=== PATIENT | female | born 1960 | race Caucasian/White ===

== ENCOUNTER 2018-10-01 17:54 | Inpatient (IN) | payer OTHER ==
[~2018-10-01] VITALS: Ht 162.6 cm; Wt 90.3 kg
[2018-10-01 17:59] VITALS: BP 188/92
[2018-10-01 18:22] LABS: ABSOLUTE BASOPHILS 0.1 thou/uL (0.0-0.2); ABSOLUTE EOSINOPHILS 0.1 thou/uL (0.0-0.7); ABSOLUTE LYMPHOCYTES 2.2 thou/uL (0.8-5.3); ABSOLUTE MONOCYTES 0.4 thou/uL (0.0-1.2); BASOPHILS 0.8 %; EOSINOPHILS 1.3 %; HEMATOCRIT 42.6 % (37.0-47.0); HEMOGLOBIN 14.4 gm/dL (12.0-15.0); LYMPHOCYTES 32.1 %; MCH 28.1 pg (26.0-34.0); MCHC 33.7 g/dL (28.0-37.0); MCV 83.3 fL (80.0-100.0); MONOCYTES 6.5 %; NUCLEATED RBCS 0 /100WBC; PLATELET COUNT* 154 thou/uL (150-400); POLYS 59.3 %; RBC 5.12 mil/uL (4.20-5.00); RDW-CV 14.2 % (10.5-14.5); WBC 6.8 thou/uL (4.0-11.0)
[2018-10-01 18:29] LABS: POTASSIUM 3.4 mmol/L (3.5-5.1)
[2018-10-01 18:39] LABS: ALBUMIN 3.7 g/dL (3.4-5.0); MAGNESIUM 1.8 mg/dL (1.8-2.4); TOTAL BILIRUBIN 0.2 mg/dL (<0.1-1.0); TOTAL PROTEIN 7.1 g/dL (6.4-8.2)
[2018-10-01 21:06] VITALS: BP 140/72
[2018-10-01 21:30] VITALS: BP 162/84
[2018-10-02] VITALS: BP 130/61
[2018-10-02 04:00] VITALS: BP 124/60
[2018-10-02 08:00] VITALS: BP 129/66
[2018-10-02 09:01] LABS: CHOLESTEROL 183 mg/dL (<200); HDL CHOLESTEROL 53 mg/dL (>40); LDL CHOLESTEROL 116 mg/dL (<100); SERUM ASSESSMENT Clear; TC:HDL 3.5 Ratio (Not establshd); TRIGLYCERIDE 71 mg/dL (<150); VLDL 14 mg/dL (<40)
[2018-10-02 12:00] VITALS: BP 130/79
--- NOTE | 2018-10-02 12:22 | EKG ---
[place] [address] ELECTROCARDIOGRAM REPORT Name: LAYNE COHEN Room: [address] ADM IN .R.#: [id number] Admission: 10/01/18 Attend Phys: Artem Alejo MD Discharge: Date of : 58 Report #: [id number] THIS REPORT FOR: //name// [facility] ED Test Date: 2018-10-01 Test Time: 17:59:06 Pat Name: LAYNE COHEN Department: Room: [facility] Gender: F Drilling Supervisor: Carlos A ELMORE : 1960 Requested By: Jose Saini Order Number: [id number] MD: Nelson Loera Measurements Intervals [place] Rate: 86 P: 42 [place]: 141 QRS: 48 QRSD: 94 T: 49 QT: 357 QTc: 427 Interpretive Statements Sinus rhythm Abnormal R-wave progression, early transition No previous ECG available for comparison Electronically Signed On 10-02-2018 12:22:44 ENGRAVER by Nelson Loera [email or web address] <ELECTRONICALLY SIGNED> By: Nelson Loera MD, [facility] 10/02/18 1222 1759 1759 Nelson Loera MD, FAC /EPI
--- NOTE | 2018-10-02 12:28 | EKG ---
[place] [address] ELECTROCARDIOGRAM REPORT Name: BARBIBANDARLAYNE Room: [address] ADM IN M.R.#: [id number] Admission: 10/01/18 Attend Phys: Artem Alejo MD Discharge: Date of : 58 Report #: [id number] THIS REPORT FOR: //name// [facility] Test Date: 2018-10-02 Test Time: 02:13:49 Pat Name: LAYNE COHEN Department: Room: [address] Gender: F Metals Analyst: : 1960 Requested By: Ellis Gil Order Number: [id number] Reading MD: Nelson Loera Measurements Intervals [place] Rate: 65 P: 43 [place]: 162 QRS: 33 QRSD: 95 T: 50 QT: 408 QTc: 425 Interpretive Statements Sinus rhythm Electronically Signed On 10-02-2018 12:28:25 WAXER FLOOR by Nelson Loera [email or web address] <ELECTRONICALLY SIGNED> By: Nelson Loera MD, [facility] 10/02/18 1228 0213 0213 Nelson Loera MD, FACC /EPI
--- NOTE | 2018-10-02 12:31 | EKG ---
[place] [address] ELECTROCARDIOGRAM REPORT Name: KAVONJUANBANDARLAYNE J Room: [address] ADM IN M.R.#: [id number] Admission: 10/01/18 Attend Phys: Artem Alejo MD Discharge: Date of : 58 Report #: [id number] THIS REPORT FOR: //name// [facility] Test Date: 2018-10-02 Test Time: 08:20:28 Pat Name: LAYNE COHEN Department: Room: [address] Gender: F Orchard Sprayer: : 1960 Requested By: Ellis Gil Order Number: [id number] Reading MD: Nelson Loera Measurements Intervals [place] Rate: 67 P: 72 [place]: 156 QRS: 50 QRSD: 94 T: 60 QT: 412 QTc: 435 Interpretive Statements Sinus rhythm Electronically Signed On 10-02-2018 12:31:30 PHYSICAL THERAPY TECHNICIAN by Nelson Loera [email or web address] <ELECTRONICALLY SIGNED> By: Nelson Loera MD, [facility] 10/02/18 1231 0820 0820 Nelson Loera MD, FACC /EPI
[2018-10-02 12:43] VITALS: BP 130/79
--- NOTE | 2018-10-02 12:44 | 2DMMODE ---
[place] [address] 2 D/M-MODE ECHOCARDIOGRAM Name: BARBIBANDARLAYNE Room: [address] IN [facility]#: [id number] Admission: 10/01/18 Attend Phys: Artem Alejo, Discharge: Date of : 58 Date of Service: 10/02/18 1243 Report #: [id number] THIS REPORT FOR: //name// APPROVED REPORT Study performed: 10/02/2018 10:19:22 EXAM: Comprehensive 2D, Doppler, and color-flow Echocardiogram Patient Location: In-Patient Room #: 219 Status: routine BSA: 1.95 HR: 66 bpm BP: 129/66 mmHg Rhythm: NSR Other Information Study Quality: Excellent Indications Non STEMI Chest Pain 2D Dimensions IVSd: 9.20 (7-11mm) LVOT Diam: 21.13 (18-24mm) LVDd: 36.05 mm PWd: 8.36 (7-11mm) Ascending Ao: 30.09 (22-36mm) LVDs: 22.27 (25-40mm) Aortic Root: 35.46 mm Volumes Left Atrial Volume (Systole) LA ESV Index: 25.40 mL/m2 Aortic Valve AoV Peak Fabian.: 1.22 m/s AO Peak Gr.: 5.98 mmHg LVOT Max P.93 mmHg AO Mean Gr.: 3.41 mmHg LVOT Mean P.51 mmHg LVOT Max V: 1.22 m/s AO V2 VTI: 25.32 cm LVOT Mean V: 0.71 m/s VAIBHAV (VTI): 3.95 cm2 LVOT V1 VTI: 28.50 cm Mitral Valve E/A Ratio: 1.38 MV Decel. Time: 217.55 [place] [address] 2 D/M-MODE ECHOCARDIOGRAM Name: LAYNE COHEN Room: [address] IN ..#: [id number] Admission: 10/01/18 Attend Phys: Artem Alejo, Discharge: Date of : 58 Date of Service: 10/02/18 1243 Report #: [id number] MV E Max Fabian.: 0.62 m/s MV PHT: 63.09 ms MVA (PHT): 3.49 cm2 TDI E/Lateral E': 5.17 E/Medial E': 6.20 Medial E' Fabian.: 0.10 m/s Lateral E' Fabian.: 0.12 m/s Pulmonary Valve PV Peak Fabian.: 0.77 m/s PV Peak Gr.: 2.39 mmHg Tricuspid Valve RAP Estimate: 5.00 mmHg TR Peak Gr.: 23.74 mmHg RVSP: 28.00 mmHg PA Pressure: 28.00 mmHg Left Ventricle The left ventricle is normal size. There is normal LV segmental wall motion. There is normal left ventricular wall thickness. Left ventricular systolic function is normal. The left ventricular ejection fraction is within the normal range. LVEF is 60-65%. The left ventricular diastolic function is normal. Right Ventricle The right ventricle is normal size. The right ventricular systolic function is normal. Atria The left atrium size is normal. The right atrium size is normal. Aortic Valve The aortic valve is normal in structure. No aortic regurgitation is present. There is no aortic valvular stenosis. Mitral Valve The mitral valve is normal in structure. There is no mitral valve regurgitation noted. No evidence of mitral valve stenosis. Tricuspid Valve The tricuspid valve is normal in structure. Trace tricuspid regurgitation. No pulmonary hypertension. Pulmonic Valve Pulmonic valve is not well visualized[place] [address] 2 D/M-MODE ECHOCARDIOGRAM Name: LAYNE COHEN Room: [address] IN [facility]#: [id number] Admission: 10/01/18 Attend Phys: Artem Alejo, Discharge: Date of : 58 Date of Service: 10/02/18 1243 Report #: [id number] regurgitation. Great Vessels The aortic root is normal in size. IVC is normal in size and collapses >50% with inspiration. Pericardium There is no pericardial effusion. <Conclusion> Left ventricular systolic function is normal. The left ventricular ejection fraction is within the normal range. <ELECTRONICALLY SIGNED> By: Nelson Loera MD, FACC 10/02/18 1243 1243 1243 Nelson Loera MD, FACC /INF
--- NOTE | 2018-10-02 15:37 | CON ---
[address] [address] CONSULTATION Name: BARBIBANDARLAYNE J Room: [address] IN ..#: [id number] Admission: 10/01/18 Attend Phys: Artem Alejo MD Discharge: 10/02/18 Date of : 58 Report #: [id number] THIS REPORT FOR: //name// CC: Felix Alejo DATE OF SERVICE: 10/02/2018 CARDIOLOGY CONSULTATION HISTORY OF PRESENT ILLNESS: The patient is a 58-year-old white female who I was asked to see in the hospital today after she complained of chest pain. The patient has no previous history of heart disease. She stays fairly active. She was doing well until yesterday afternoon. She was driving her car when she felt a pain under her left armpit. She felt a pressure sensation. It would tend to come and go. She noted some tingling of her fingers. She denied any associated shortness of breath, diaphoresis or nausea. She denied any chest tightness. She has had no recent fever, cough or blood in her stool. The pain was not related to food. She denied any trauma to her chest or rash. She denies any exertional dyspnea, palpitations or syncope. PAST MEDICAL HISTORY: Significant for previous tubal ligation. She had an appendectomy as a child. No history of hypertension, diabetes or hyperlipidemia. MEDICATIONS: She is on no medications. ALLERGIES: She has no known drug allergies. FAMILY HISTORY: Her mother had carotid endarterectomy, brother had a heart attack. SOCIAL HISTORY: She is . She works for a [employer] company. She stays active, including mowing the yard. She and her live in [place], [place]. No smoking or alcohol abuse. REVIEW OF SYSTEMS: No history of stroke, asthma, peptic ulcer disease, liver disease, kidney disease, cancer, psychiatric illness or chronic skin condition. PHYSICAL EXAMINATION: GENERAL: Revealed a middle-aged female lying in bed. She appeared in no distress. VITAL SIGNS: She had a blood pressure of 140/70, pulse 70. She was afebrile. HEENT: She was anicteric. Conjunctivae pink. Mucous membranes moist. NECK: Neck veins nondistended. No carotid bruits. [place] [address] CONSULTATION Name: BARBIBANDARLAYNE Room: [address]#: [id number] Admission: 10/01/18 Attend Phys: Artem Alejo MD Discharge: 10/02/18 Date of : 58 Report #: [id number] CHEST: Clear to auscultation. CARDIAC EXAMINATION: Regular rate and rhythm. without rub, murmur or gallop. ABDOMEN: Soft, nontender. EXTREMITIES: Had no edema. Dorsalis pedis pulse 3+ bilaterally. SKIN: Warm, dry. NEUROLOGICAL EXAMINATION: Nonfocal. LYMPH EXAMINATION: No adenopathy. MUSCULOSKELETAL EXAMINATION: No joint effusion. DIAGNOSTIC DATA: Her ECG on admission yesterday showed a sinus rhythm, with no ST or T-wave change. Her lab work, sodium 144, potassium 3.4 and creatinine 1.0. Liver function studies were normal. Troponin initially was 0.12, but 2 subsequent sets, it is less than 0.06. Lipid profile is pending. White blood cell count 6.8, hemoglobin 14.4. She had a portable chest x-ray yesterday that showed normal heart size and clear lung cm. IMPRESSION AND RECOMMENDATIONS: 1. Chest pain. The patient has minimal risk factors for coronary artery disease. Her pain is atypical for angina. I would not recommend stress testing. I suspect her chest pain is noncardiac. 2. Initial mild elevation of troponin. I would recommend an echocardiogram. 3. Borderline hypertension. Recommend exercise, weight loss and sodium restriction. <ELECTRONICALLY SIGNED> By: Nelson Loera MD, FACC 10/02/18 1537 0850 [id number] Loera MD, FACC /nt
== END 2018-10-02 14:00 | disposition home or self-care (01) | DRG 282 ==
LOC: M.ERS 17:54 → M.TBA-ER 20:16 → M.2W 20:16
PROVIDERS: Emergency Medicine Emergency Medical Services; ADMIT Internal Medicine
DX: I21.4 Non-ST elevation (NSTEMI) myocardial infarction (principal); I10 Essential (primary) hypertension; E87.6 Hypokalemia; I15.8 Other secondary hypertension; F43.9 Reaction to severe stress, unspecified; Z86.14 Personal history of Methicillin resistant Staphylococcus aureus infection; Z90.49 Acquired absence of other specified parts of digestive tract; Z82.49 Family history of ischemic heart disease and other diseases of the circulatory system

== ENCOUNTER 2021-10-30 08:37 | Inpatient (IN) | payer OTHER ==
[~2021-10-30] VITALS: Ht 162.6 cm; Wt 87.1 kg
[2021-10-30 08:39] VITALS: BP 136/71
[2021-10-30] MEDS ORDERED: DEXAMETHASONE 44 M1 PO (09:13)
[2021-10-30] MEDS ORDERED: ZOFRAN ODT4 MG DISSOLVE (09:13)
[2021-10-30 09:17] LABS: BE -0.3 mmol/L (-2 to +3); PCO2 35.1 mmHg (35.0-45.0); PO2 69.1 mmHg (75.0-100.0)
[2021-10-30 09:25] LABS: ABSOLUTE LYMPHOCYTES 0.8 thou/uL (0.8-5.3); ABSOLUTE MONOCYTES 0.3 thou/uL (0.0-1.2); ABSOLUTE NEUTROPHILS 1.7 thou/uL (1.6-8.1); BASOPHILS 0.6 %; EOSINOPHILS 0.1 %; HEMATOCRIT 41.6 % (37.0-47.0); HEMOGLOBIN 14.2 gm/dL (12.0-15.0); LYMPHOCYTES 28.2 %; MCH 27.5 pg (26.0-34.0); MONOCYTES 10.2 %; MPV 6.7 fl. (7.2-11.1); NUCLEATED RBCS 0 /100WBC; PLATELET COUNT* 100 thou/uL (150-400); POLYS 60.9 %; RBC 5.14 mil/uL (4.20-5.00); WBC 2.8 thou/uL (4.0-11.0)
[2021-10-30 09:27] LABS: CREATININE 0.9 mg/dL (0.6-1.3); POTASSIUM 3.5 mmol/L (3.5-5.1)
[2021-10-30 09:37] LABS: ALBUMIN 3.1 g/dL (3.4-5.0); TOTAL BILIRUBIN 0.5 mg/dL (<0.1-1.0); TOTAL PROTEIN 6.6 g/dL (6.4-8.2)
--- NOTE | 2021-10-30 11:08 | EKG ---
[place] [address] ELECTROCARDIOGRAM REPORT Name: LAYNE COHEN Room: [place] [address] ADM IN M.R.#: [id number] Admission: 10/30/21 Attend Phys: Heriberto Suarez, Discharge: Date of : 58 Date of Service: 10/30/21 0940 Report #: [id number] THIS REPORT FOR: //name// [facility] ED Test Date: 2021-10-30 Test Time: 09:40:40 Pat Name: LAYNE COHEN Department: Room: [facility] Gender: F Primer Inserting Machine Adjuster: YESICA : 1960 Requested By: Ellis Gil Order Number: [id number] MD: Sebastien Ricardo Measurements Intervals [place] Rate: 81 P: 63 PA: 144 QRS: 40 QRSD: 91 T: 37 QT: 384 QTc: 446 Interpretive Statements Sinus rhythm Nondiagnostic inferior Q waves Compared to ECG 10/02/2018 08:20:28 No significant interval change Electronically Signed On 10-30-2021 11:08:27 CASEWORKER INTAKE by Sebastien Ricardo [email or web address] <ELECTRONICALLY SIGNED> By: Sebastien Ricardo MD, [facility] 10/30/21 1108 0940 0940 Sebastien Ricardo MD, [facility] /EPI
--- NOTE | 2021-10-30 13:47 | NUR ---
PATIENT ADMITTED TO HOSPITAL; BOARDING IN ED BED 16 WITH HYPOXIA AND COVID POSITIVE. VSS. LUNG SOUNDS DIMINISHED. PATIENT A&OX4. PATIENT LIVES IN HOME WITH , SON, AND SON'S FAMILY INCLUDING CHILDREN. ONE OF THE PATIENT'S GRANDCHILDREN WHOM LIVES IN THE HOME, TESTED COVID POSITIVE WITH AN AT HOME TEST. PATIENT ON 2LNC. PATIENT STATES SHE HAS NOT EATEN ANYTHING IN 7 DAYS UNTIL LUNCHTIME TODAY.
[2021-10-30 14:37] VITALS: BP 124/62
--- NOTE | 2021-10-30 15:07 | NUR ---
Attempted to assess. Left message for spouse - Mk at: [phone].
[2021-10-30 18:30] VITALS: BP 125/73
[2021-10-30 20:00] VITALS: BP 130/66
[2021-10-30 20:58] VITALS: BP 144/54
[2021-10-31] VITALS: BP 144/58
[2021-10-31 04:41] VITALS: BP 133/68
[2021-10-31 05:28] LABS: CALCIUM 7.6 mg/dL (8.5-10.1); CREATININE 0.6 mg/dL (0.6-1.3); POTASSIUM 3.5 mmol/L (3.5-5.1)
[2021-10-31 05:36] LABS: ABSOLUTE LYMPHOCYTES 1.1 thou/uL (0.8-5.3); ABSOLUTE MONOCYTES 0.3 thou/uL (0.0-1.2); ABSOLUTE NEUTROPHILS 1.8 thou/uL (1.6-8.1); BASOPHILS 0.2 %; HEMATOCRIT 39.3 % (37.0-47.0); HEMOGLOBIN 13.7 gm/dL (12.0-15.0); LYMPHOCYTES 33.8 %; MCH 28.1 pg (26.0-34.0); MCHC 34.9 g/dL (28.0-37.0); MCV 80.5 fL (80.0-100.0); MONOCYTES 9.2 %; MPV 6.4 fl. (7.2-11.1); NUCLEATED RBCS 0 /100WBC; PLATELET COUNT* 101 thou/uL (150-400); POLYS 56.8 %; RBC 4.88 mil/uL (4.20-5.00); RDW-CV 14.3 % (10.5-14.5); WBC 3.1 thou/uL (4.0-11.0)
--- NOTE | 2021-10-31 06:23 | NUR ---
REPORT RECEIVED PER RAY IN ED. ASSUMED PT CARE AT APPROX 2014. PT IS A/OX4. VSS. PT IS TRACING SR ON PER DIEM REGISTERED NURSE. MEDICATIONS ADMINISTERED PRESCRIBED. ASSESSMENTS COMPLETED. HOURLY ROUNDS COMPLETED. FALL PRECAUTIONS IN PLACE FOR SAFETY. WILL CONT. TO MONITOR.
[2021-10-31 08:00] VITALS: BP 127/64
[2021-10-31 12:42] VITALS: BP 149/65
--- NOTE | 2021-10-31 14:54 | NUR ---
Attempted to assess x2. Called into patient's room - no answer. Called pt's spouse - Mk at: and left a message and requested a call back.
[2021-10-31 17:26] VITALS: BP 134/65
[2021-10-31 20:49] VITALS: BP 132/67
[2021-11-01 02:34] VITALS: BP 113/66
[2021-11-01 04:13] LABS: HEMATOCRIT 37.4 % (37.0-47.0); HEMOGLOBIN 12.8 gm/dL (12.0-15.0); MCH 27.9 pg (26.0-34.0); MCHC 34.3 g/dL (28.0-37.0); MCV 81.3 fL (80.0-100.0); MPV 6.6 fl. (7.2-11.1); RBC 4.6 mil/uL (4.20-5.00); RDW-CV 14.1 % (10.5-14.5); WBC 3.4 thou/uL (4.0-11.0)
[2021-11-01 04:34] LABS: ALBUMIN 2.5 g/dL (3.4-5.0); CALCIUM 7.5 mg/dL (8.5-10.1); CREATININE 0.6 mg/dL (0.6-1.3); MAGNESIUM 2.2 mg/dL (1.8-2.4); POTASSIUM 3.8 mmol/L (3.5-5.1); TOTAL BILIRUBIN 0.2 mg/dL (<0.1-1.0); TOTAL PROTEIN 5.3 g/dL (6.4-8.2)
[2021-11-01 05:52] VITALS: BP 136/68
--- NOTE | 2021-11-01 07:42 | NUR ---
PT IS ABLE TO COMMUNICATE HER NEEDS TO STAFF EFFECTIVELY. SHE HAS DENIED THE NEED FOR PAIN MEDICATION UP TO 0700 THIS MORNING. PT CURRENTLY ON ROOM AIR.
--- NOTE | 2021-11-01 09:13 | NUR ---
Pt is admitted on 10/30/21 with Covid 19 Pneumonia. Called pt's daughter - Toshia to complete assesment. Pt lives with her spouse in a house with 2 steps to enter. She was previously independent in Mobility and ADL's. Pt has no hx of HH, DME, or SNF. CM to continue to follow for discharge planning.
[2021-11-01 14:55] VITALS: BP 152/76
[2021-11-01 16:00] VITALS: BP 154/73
--- NOTE | 2021-11-01 16:46 | NUR ---
PT REMAIN ON RA AND NO C/O SOA. PT UP AD [place] AND TAKING IN GOOD PO. WILL CONTINUE TO ASSESS.
[2021-11-01 20:00] VITALS: BP 134/82
[2021-11-02 01:28] VITALS: BP 124/74
[2021-11-02 05:47] VITALS: BP 122/72
[2021-11-02 08:00] VITALS: BP 153/67
[2021-11-02] MEDS ORDERED: PREDNISONE 10 M10 MG PO (14:09)
[2021-11-02] MEDS ORDERED: PROAIR HFA8.5 GM INH (14:09)
[2021-11-02] MEDS ORDERED: LEVOFLOXACIN500 MG PO (14:09)
[2021-11-02] MEDS ORDERED: ZOFRAN4 MG PO (14:09)
[2021-11-02 15:51] VITALS: BP 153/67
--- NOTE | 2021-11-02 15:57 | NUR ---
CM FOLLOWUP PT MED CLEAR AND WILL DC HOME WITH DAUGHTER TODAY, 11/02/21. NO CM NEEDS NOTED.
--- NOTE | 2021-11-03 17:32 | NUR ---
PT. ENCOURAGED OOB TO CHAIR, TOLERATES WITHOUT DIFFICULTY. DC ORDERS RECEIVED, DC PACKET PROVIDED, PT VERBALIZED UNDERSTANDING. PT. LEFT BY WHEELCHAIR ACCOMPANIED BY THIS NURSE, IN STABLE CONDITION, AND PICKED UP BY FAMILY MEMBER BY CAR.
== END 2021-11-02 16:23 | disposition home or self-care (01) | DRG 177 ==
LOC: M.ERS 08:37 → M.TBA-ER 10:07 → M.ORTHSURG 10:07
PROVIDERS: Family Medicine; Internal Medicine; ADMIT Internal Medicine; ATTEND Internal Medicine
PROC: XW033E5 Introduction of Remdesivir Anti-infective into Peripheral Vein, Percutaneous Approach, New Technology Group 5 (ICD-10-PCS; principal; 2021-10-30)
DX: U07.1 COVID-19 (principal); J96.01 Acute respiratory failure with hypoxia; J12.82 Pneumonia due to coronavirus disease 2019; R63.0 Anorexia; M79.10 Myalgia, unspecified site; B34.9 Viral infection, unspecified; Z79.899 Other long term (current) drug therapy; Z86.14 Personal history of Methicillin resistant Staphylococcus aureus infection; Z86.16 Personal history of COVID-19; Z68.32 Body mass index [BMI] 32.0-32.9, adult

== ENCOUNTER 2021-11-30 23:48 | Inpatient (IN) | payer OTHER ==
[~2021-11-30] VITALS: Ht 162.6 cm; Wt 88.9 kg
[~2021-11-30 23:48] MED LIST: DEXAMETHASONE 44 M1 PO; LEVOFLOXACIN500 MG PO; PREDNISONE 10 M10 MG PO; PROAIR HFA8.5 GM INH; ZOFRAN ODT4 MG DISSOLVE; ZOFRAN4 MG PO
[2021-11-30 23:57] VITALS: BP 161/90
[2021-12-01 00:31] LABS: INFLUENZA A ANTIGEN Negative (Negative); INFLUENZA B ANTIGEN Negative (Negative)
[2021-12-01 01:36] LABS: ABSOLUTE BASOPHILS 0.1 thou/uL (0.0-0.2); ABSOLUTE LYMPHOCYTES 1.7 thou/uL (0.8-5.3); ABSOLUTE MONOCYTES 0.8 thou/uL (0.0-1.2); ABSOLUTE NEUTROPHILS 4.4 thou/uL (1.6-8.1); BASOPHILS 0.9 %; EOSINOPHILS 0.6 %; HEMOGLOBIN 13.4 gm/dL (12.0-15.0); LYMPHOCYTES 24.8 %; MCH 28.2 pg (26.0-34.0); MCHC 33.6 g/dL (28.0-37.0); MCV 83.9 fL (80.0-100.0); MONOCYTES 10.7 %; MPV 5.6 fl. (7.2-11.1); NUCLEATED RBCS 0 /100WBC; PLATELET COUNT* 162 thou/uL (150-400); RBC 4.77 mil/uL (4.20-5.00); RDW-CV 14.7 % (10.5-14.5)
[2021-12-01 01:44] LABS: CALCIUM 8.9 mg/dL (8.5-10.1); POTASSIUM 3.8 mmol/L (3.5-5.1)
[2021-12-01 01:48] LABS: ALBUMIN 3.3 g/dL (3.4-5.0); MAGNESIUM 1.9 mg/dL (1.8-2.4); TOTAL BILIRUBIN 0.4 mg/dL (<0.1-1.0); TOTAL PROTEIN 6.6 g/dL (6.4-8.2)
[2021-12-01 03:17] LABS: URINE BILIRUBIN NEGATIVE (Negative); URINE BLOOD NEGATIVE (Negative); URINE CLARITY CLEAR; URINE COLOR YELLOW; URINE GLUCOSE-RANDOM NEGATIVE (Negative); URINE KETONES NEGATIVE (Negative); URINE LEUKOCYTES-REFLEX NEGATIVE (Negative); URINE NITRITE-REFLEX NEGATIVE (Negative); URINE PROTEIN NEGATIVE (Negative); URINE SPECIFIC GRAVITY <= 1.005 (1.005-1.030); URINE UROBILINOGEN 0.2 E.U./dl (0.2-1.0)
[2021-12-01 05:28] LABS: PROTIME 10.5 Seconds (9.20-11.50)
[2021-12-01 09:00] VITALS: BP 119/55
[2021-12-01 13:00] VITALS: BP 139/72
[2021-12-01 17:00] VITALS: BP 139/72
[2021-12-01 20:07] VITALS: BP 129/71
[2021-12-01 23:53] VITALS: BP 128/59
[2021-12-02 04:08] VITALS: BP 124/60
[2021-12-02 04:37] LABS: ABSOLUTE LYMPHOCYTES 1.8 thou/uL (0.8-5.3); ABSOLUTE MONOCYTES 0.4 thou/uL (0.0-1.2); ABSOLUTE NEUTROPHILS 2.5 thou/uL (1.6-8.1); HEMATOCRIT 37.5 % (37.0-47.0); RBC 4.45 mil/uL (4.20-5.00); WBC 4.8 thou/uL (4.0-11.0)
[2021-12-02 04:41] LABS: EOSINOPHILS 0.9 %; HEMOGLOBIN 12.4 gm/dL (12.0-15.0); LYMPHOCYTES 36.8 %; MCH 27.9 pg (26.0-34.0); MCHC 33.1 g/dL (28.0-37.0); MCV 84.2 fL (80.0-100.0); MONOCYTES 8.9 %; NUCLEATED RBCS 0 /100WBC; PLATELET COUNT* 176 thou/uL (150-400); POLYS 52.4 %
[2021-12-02 04:54] LABS: CALCIUM 8.4 mg/dL (8.5-10.1); CREATININE 0.9 mg/dL (0.6-1.3); POTASSIUM 3.7 mmol/L (3.5-5.1)
[2021-12-02 08:00] VITALS: BP 123/70
--- NOTE | 2021-12-02 12:45 | EKG ---
[place] [address] ELECTROCARDIOGRAM REPORT Name: KAVONJUANLISANDRO PORTILLOLA Carlos A Room: [place] [address] ADM IN .R.#: [id number] Admission: 12/01/21 Attend Phys: Jovan Hunter Discharge: Date of : 58 Date of Service: 11/30/21 2352 Report #: [id number] THIS REPORT FOR: //name// [facility] ED Test Date: 2021-11-30 Test Time: 23:52:59 Pat Name: LAYNE COHEN Department: Room: [facility] Gender: F Senior Quality Assurance Specialist: MARLON : 1960 Requested By: Venessa Downing Order Number: [id number] MD: Norm Emmanuel Measurements Intervals [place] Rate: 109 P: 54 [place]: 135 QRS: -30 QRSD: 95 T: 32 QT: 312 QTc: 421 Interpretive Statements Sinus tachycardia Left axis deviation Compared to ECG 10/30/2021 09:40:40 Left-axis deviation now present Sinus rhythm no longer present Inferior Q waves no longer present Q waves no longer present Electronically Signed On 12-02-2021 12:45:11 EXERCISE SCIENCE INTERNSHIP by Norm Emmanuel [email or web address] <ELECTRONICALLY SIGNED> By: Jayy Emmanuel MD, FAC 12/02/21 1245 51 51 Jayy Emmanuel MD, [facility] /EPI
[2021-12-02 14:00] VITALS: BP 129/66
[2021-12-02 20:00] VITALS: BP 142/77
[2021-12-03] VITALS: BP 117/61
--- NOTE | 2021-12-03 01:39 | NUR ---
ADMISSION COMPLETED, PT DENIES CHEST PAIN OR SOA. GAIT STEADY AROUND ROOM AND BRP. DISCUSSED ELIQUIST AND HOME WITH BLOOD THINNER. TELEMETRY ON SHOWING SR.
[2021-12-03 04:00] VITALS: BP 140/70
[2021-12-03 04:32] LABS: HEMATOCRIT 36.5 % (37.0-47.0); HEMOGLOBIN 12.2 gm/dL (12.0-15.0); MCH 28.1 pg (26.0-34.0); MCHC 33.4 g/dL (28.0-37.0); MCV 84.1 fL (80.0-100.0); MPV 5.8 fl. (7.2-11.1); RBC 4.34 mil/uL (4.20-5.00); RDW-CV 14.6 % (10.5-14.5); WBC 4.8 thou/uL (4.0-11.0)
[2021-12-03 04:40] LABS: CALCIUM 8.6 mg/dL (8.5-10.1); CREATININE 0.9 mg/dL (0.6-1.3)
[2021-12-03 09:00] VITALS: BP 136/76
[2021-12-03 12:00] VITALS: BP 138/78
--- NOTE | 2021-12-03 13:11 | 2DMMODE ---
[place] [address] 2 D/M-MODE ECHOCARDIOGRAM Name: LAYNE COHEN Room: [address] ADM IN [place]#: [id number] Admission: 12/01/21 Attend Phys: Jovan Hunter Discharge: Date of : 58 Date of Service: 12/03/21 1311 Report #: [id number] THIS REPORT FOR: cc: FAM - No family physician/PCP FAM - No family physician/PCP Nelson Loera MD [facility] ~ APPROVED REPORT Study performed: 12/03/2021 09:58:47 EXAM: Comprehensive 2D, Doppler, and color-flow Echocardiogram Patient Location: In-Patient Room #: [facility] Status: routine BSA: 1.96 HR: 72 bpm BP: 140/70 mmHg Rhythm: NSR Other Information Study Quality: Good Indications Pulmonary Embolism 2D Dimensions IVSd: 10.08 (7-11mm) LVOT Diam: 20.16 (18-24mm) LVDd: 42.78 mm PWd: 8.31 (7-11mm) Ascending Ao: 31.15 (22-36mm) LVDs: 26.49 (25-40mm) Aortic Root: 33.13 mm Volumes Left Atrial Volume (Systole) LA ESV Index: 23.20 mL/m2 Aortic Valve AoV Peak Fabian.: 1.36 m/s AO Peak Gr.: 7.36 mmHg LVOT Max P.14 mmHg AO Mean Gr.: 4.30 mmHg LVOT Mean P.75 mmHg LVOT Max V: 1.24 m/s AO V2 VTI: 30.04 cm LVOT Mean V: 0.75 m/s VAIBHAV (VTI): 2.86 cm2 LVOT V1 VTI: 26.92 [place] [address] 2 D/M-MODE ECHOCARDIOGRAM Name: LAYNE COHEN Room: [address] IN [facility].#: [id number] Admission: 12/01/21 Attend Phys: Jovan Hunter Discharge: Date of : 58 Date of Service: 12/03/21 1311 Report #: [id number] Mitral Valve E/A Ratio: 1.21 MV Decel. Time: 169.90 ms MV E Max Fabian.: 0.71 m/s MV PHT: 49.27 ms MVA (PHT): 4.47 cm2 TDI E/Lateral E': 5.46 E/Medial E': 6.45 Medial E' Fabian.: 0.11 m/s Lateral E' Fabian.: 0.13 m/s Pulmonary Valve PV Peak Fabian.: 0.84 m/s PV Peak Gr.: 2.80 mmHg Tricuspid Valve RAP Estimate: 5.00 mmHg TR Peak Gr.: 20.67 mmHg RVSP: 25.00 mmHg PA Pressure: 25.00 mmHg Left Ventricle The left ventricle is normal size. There is normal LV segmental wall motion. There is normal left ventricular wall thickness. Left ventricular systolic function is normal. The left ventricular ejection fraction is within the normal range. LVEF is 55-60%. The left ventricular diastolic function is normal. Right Ventricle The right ventricle is normal size. The right ventricular systolic function is normal. Atria The left atrium size is normal. The right atrium size is normal. Aortic Valve The aortic valve is normal in structure. mild aortic regurgitation is present. There is no aortic valvular stenosis. Mitral Valve The mitral valve is normal in structure. There is no mitral valve regurgitation noted. No evidence of mitral valve stenosis. Tricuspid Valve The tricuspid valve is normal in structure. Trace tricuspid regurgitation. [place] [address] 2 D/M-MODE ECHOCARDIOGRAM Name: LAYNE COHEN Room: [address] IN [facility]#: [id number] Admission: 12/01/21 Attend Phys: Jovan Hunter Discharge: Date of : 58 Date of Service: 12/03/21 1311 Report #: [id number] Pulmonic Valve The pulmonary valve is normal in structure. Mild pulmonic regurgitation. Great Vessels The aortic root is normal in size. IVC is normal in size and collapses >50% with inspiration. Pericardium There is no pericardial effusion. <Conclusion> LVEF is 55-60%. mild aortic regurgitation is present. <ELECTRONICALLY SIGNED> By: Nelson Loera MD, FACC 12/03/211310 10 10 Nelson Loera MD, FACC /INF
--- NOTE | 2021-12-03 16:52 | NUR ---
Pt is admitted to the hospital on 12/01/21 with PE. Pt is alert and oriented x3. Pt lives with spouse, son, dtr-in-law, and 2 grandsons. Pt was previously independent in ADL's and mobility. No hx of DME/HH/ or SNF. Pt fills her prescriptions at [facility] on [address] Pt saw her PCP 1 month ago. CM to continue to follow for discharge needs.
[2021-12-03 17:26] VITALS: BP 136/81
--- NOTE | 2021-12-03 18:57 | CON ---
[address] [address] CONSULTATION Name: LAYNE COHEN Room: [address] IN ..#: [id number] Admission: 12/01/21 Attend Phys: Rosie Harrison Discharge: Date of : 58 Report #: [id number] THIS REPORT FOR: cc: FAM - No family physician/PCP FAM - No family physician/PCP Bowen Pinon MD ~ DATE OF CONSULTATION: 12/01/2021 REQUESTING PHYSICIAN: Dr. Danielson. INDICATION FOR CONSULTATION: Acute pulmonary emboli. HISTORY OF PRESENT ILLNESS: A 61-year-old female was recently here with COVID-19, is now admitted again with chest pain. She also did have shortness of breath and fever initially. Occasional cough, not much sputum. She essentially does not have any other complaints at this time. The patient's CTA chest does show pulmonary emboli. She does not have significant swelling of lower extremities or calf pain. REVIEW OF SYSTEMS: For 12 points is negative except as mentioned above. PAST MEDICAL HISTORY: Recent COVID-19, previous history of MRSA infections. SOCIAL HISTORY: Lifetime nonsmoker. No known history of heavy alcohol use or illegal drug use. CURRENT MEDICATIONS: List in [employer] reviewed. HOME MEDICATIONS: List in [employer] reviewed. ALLERGIES: No known drug allergies. FAMILY HISTORY: There are several family members who have had thromboembolism. VACCINATION HISTORY: Not vaccinated for COVID-19. PHYSICAL EXAMINATION: GENERAL: She is alert, awake and oriented. VITAL SIGNS: In the records reviewed. NECK: Does not show raised JVP. CHEST: Clear to auscultation. HEART: Regular. There is no murmur. ABDOMEN: Soft and nontender. EXTREMITIES: Lower extremities, trace edema. No calf tenderness. There are some small [place] [address] CONSULTATION Name: LAYNE COHEN Carlos A Room: [address] IN [facility].#: [id number] Admission: 12/01/21 Attend Phys: Rosie Harrison Discharge: Date of : 58 Report #: [id number] CTA chest films as well as report reviewed. Abdominal ultrasound and venous Doppler report reviewed. Chest x-ray report reviewed compared with previous. ASSESSMENT AND PLAN: 1. Acute pulmonary embolism. This is likely related to COVID-19; however, the patient does have a significant family history of thromboembolism and therefore underlying hypercoagulable state also needs to be ruled out. She is currently on IV heparin infusion. I feel that we can go ahead and switch this over to subcutaneous Lovenox this evening. If by tomorrow there are no new events, then I would recommend that we go ahead and switch this over to Eliquis 10 mg p.o. b.i.d. for 1 week, followed by Eliquis 5 mg b.i.d. for 3 months, after which I recommend reevaluation with a repeat CTA chest. Venous Dopplers are negative. I recommend that we obtain a 2D echo as well. 2. The length that the patient would require anticoagulation is to be determined at this point. Note that she has a strong family history of thromboembolism. Therefore, I went ahead and ordered a hypercoagulability profile results and this could be followed as an outpatient. This will not affect current management, but may have an impact on the length of anticoagulation that the patient would require 3. Fever/pulmonary infiltrates. There are some pulmonary infiltrates noted on the CT or chest x-ray; however, if anything looks slightly better than the previous. She has had recent COVID. She has recently received Levaquin as outpatient. Therefore, I do not see any definite evidence of bacterial pneumonia and I did not start antibiotics at this time. Should she remain febrile, this will be a consideration. If we do give her antibiotics, I would perhaps be inclined to include MRSA coverage considering previous history, doxycycline could be one possible consideration, but for now I decided to hold off and watch off antibiotics. 4. Recent history of COVID-19. See discussion above. Thanks for this consultation. <ELECTRONICALLY SIGNED> By: Bowen Pinon MD 12/03/21 1857 1758 [id number] Pinon MD /nt
[2021-12-03 21:00] VITALS: BP 124/61
[2021-12-04] VITALS: BP 126/62
[2021-12-04 04:00] VITALS: BP 140/74
--- NOTE | 2021-12-04 06:22 | NUR ---
SLEPT WELL TONIGHT. NO COMPLAINTS VOICED. TELEMETRY SHOWING SR.
[2021-12-04 08:00] VITALS: BP 130/68
[2021-12-04] MEDS ORDERED: ELIQUIS5 MG PO (08:01)
[2021-12-04 10:08] VITALS: BP 140/74
[2021-12-04 16:06] LABS: ANA INTERPRETATION Negative (())
[2021-12-05] MEDS ORDERED: VISTARIL 25 MG25 M1 PO (22:23)
== END 2021-12-04 13:40 | disposition home or self-care (01) | DRG 176 ==
LOC: M.ERS 23:48 → M.TBA-ER 12-01 05:11 → M.2W 12-01 05:11
PROVIDERS: Emergency Medicine; Internal Medicine; Internal Medicine Critical Care Medicine; ADMIT Internal Medicine; ATTEND Internal Medicine
DX: I26.94 Multiple subsegmental thrombotic pulmonary emboli without acute cor pulmonale (principal); D68.59 Other primary thrombophilia; Z20.822 Contact with and (suspected) exposure to COVID-19; Z86.14 Personal history of Methicillin resistant Staphylococcus aureus infection; Z86.16 Personal history of COVID-19

== ENCOUNTER 2021-12-05 18:34 | Emergency (ER) | payer OTHER ==
[~2021-12-05] VITALS: Ht 162.6 cm; Wt 88.9 kg
[~2021-12-05 18:34] MED LIST changes: +ELIQUIS5 MG PO
[2021-12-05 19:54] LABS: ABSOLUTE BASOPHILS 0.1 thou/uL (0.0-0.2); ABSOLUTE LYMPHOCYTES 1.7 thou/uL (0.8-5.3); ABSOLUTE MONOCYTES 0.5 thou/uL (0.0-1.2); BASOPHILS 1.7 %; EOSINOPHILS 0.6 %; HEMATOCRIT 42.1 % (37.0-47.0); HEMOGLOBIN 13.9 gm/dL (12.0-15.0); LYMPHOCYTES 27.3 %; MCH 27.8 pg (26.0-34.0); MCHC 33.1 g/dL (28.0-37.0); MCV 83.9 fL (80.0-100.0); MONOCYTES 7.2 %; MPV 5.7 fl. (7.2-11.1); NUCLEATED RBCS 0 /100WBC; PLATELET COUNT* 235 thou/uL (150-400); POLYS 63.2 %; RBC 5.02 mil/uL (4.20-5.00); RDW-CV 14.6 % (10.5-14.5); WBC 6.3 thou/uL (4.0-11.0)
[2021-12-05 20:39] LABS: CALCIUM 9.6 mg/dL (8.5-10.1); CREATININE 0.8 mg/dL (0.6-1.3); POTASSIUM 4.1 mmol/L (3.5-5.1)
[2021-12-05 20:43] LABS: ALBUMIN 3.8 g/dL (3.4-5.0); TOTAL BILIRUBIN 0.3 mg/dL (<0.1-1.0); TOTAL PROTEIN 7.3 g/dL (6.4-8.2)
[2021-12-05] MEDS ORDERED: VISTARIL 25 MG25 M1 PO (22:23)
[2021-12-05 22:40] VITALS: BP 130/76
--- NOTE | 2021-12-06 12:20 | EKG ---
[place] [address] ELECTROCARDIOGRAM REPORT Name: LAYNE COHEN Room: [facility]#: [id number] Admission: 12/05/21 Attend Phys: Discharge: 12/05/21 Date of : 58 Date of Service: 12/05/211913 Report #: [id number] THIS REPORT FOR: //name// [facility] ED Test Date: 2021-12-05 Test Time: 19:14:41 Pat Name: LAYNE COHEN Department: Room: Gender: F Miller Helper Distillery: : 1960 Requested By: Shayna Hill Order Number: [id number] MD: Nelson Loera Measurements Intervals [place] Rate: 80 P: 64 [place]: 138 QRS: 30 QRSD: 88 T: 60 QT: 371 QTc: 428 Interpretive Statements Sinus rhythm Compared to ECG 11/30/2021 23:52:59 Sinus tachycardia no longer present Left-axis deviation no longer present Electronically Signed On 12-06-2021 12:20:18 SYSTEMS INTEGRATION ADVISOR by Nelson Loera [email or web address] <ELECTRONICALLY SIGNED> By: Nelson Loera MD, FACC 12/06/21 1220 13 13 Nelson Loera MD, [facility] /EPI
== END 2021-12-05 22:40 | disposition home or self-care (01) ==
LOC: M.ERS 18:34
PROVIDERS: Student in an Organized Health Care Education/Training Program
DX: F41.9 Anxiety disorder, unspecified (principal); R07.89 Other chest pain